=== PATIENT | female | born 1960 | race Hispanic/Latino ===

== ENCOUNTER 2021-07-07 11:03 | Day surgery (SDC) | payer BC ==
[2021-07-01 14:28] LABS: Urine Appearance CLEAR (Clear); Urine Bilirubin NEGATIVE (Negative); Urine Blood NEGATIVE (Negative); Urine Color YELLOW (Yellow); Urine Glucose NEGATIVE (Negative); Urine Protein NEGATIVE (Negative); Urine Specific Gravity 1.015 (1.005-1.030); Urine Urobilinogen 0.2 mg/dL (0.2-1.0)
--- NOTE | 2021-07-01 14:29 | RAD REPORT ---
EXAM DESCRIPTION: Rosamaria Andrews (2 Views)07/01/2021 2:22 pm CLINICAL HISTORY: Preop for bladder surgery COMPARISON: None FINDINGS: The lungs appear clear of acute infiltrate. The heart is borderline enlarged IMPRESSION: No acute abnormalities displayed
[2021-07-01 14:32] LABS: Urine Microscopic Reflex NO UMIC
[2021-07-01 14:44] LABS: BUN Blood Urea Nitrogen 16 mg/dL (7-18); Bicarbonate 29 mmol/L (21-32); Glucose Level 101 mg/dL (74-106); Potassium 3.9 mmol/L (3.5-5.1); Sodium Level 143 mmol/L (136-145)
[2021-07-01 15:24] LABS: Absolute Lymphocytes (CBC) 2.7 K/uL (0.7-4.9); Basophils % 0.4 % (0-1.3); Hematocrit 37.7 % (36.0-45.0); Lymphocytes % 28.3 % (15.3-44.8); MPV 8.5 fL (7.6-11.3)
[2021-07-01 15:26] LABS: Protime INR 0.97
[2021-07-07] MEDS ORDERED: NA CHLORIDE 0.9% 100 ML IV ONE (11:43)
[2021-07-07] MEDS ORDERED: CEFAZOLIN/SWI 1gm 1 GM/10 ML SYR ONE (11:44)
[2021-07-07] MEDS ORDERED: ROCURONIUM 50 MG/5 ML VIAL IV ONE (11:50)
[2021-07-07] MEDS ORDERED: VASOPRESSIN 20 UNIT/ML VIAL ONE (12:19)
[2021-07-07] MEDS ORDERED: propofoL 200 MG/20 ML VIAL IV ONE (12:42)
[2021-07-07] MEDS ORDERED: FENTANYL CITR 250 MCG/5 ML ONE (12:43)
[2021-07-07] MEDS ORDERED: dexAMETHasone 10 MG/ML VIAL ONE ×2 (12:43→17:33)
[2021-07-07] MEDS ORDERED: ONDANSETRON 4 MG/2 ML VIAL ONE ×2 (12:43→17:33)
[2021-07-07] MEDS ORDERED: MIDAZOLAM HCL 2 MG/2 ML INJ ONE (12:43)
[2021-07-07] MEDS ORDERED: LIDOCAINE 1% MPF 5 ML VIAL ONE (12:43)
[2021-07-07] MEDS: CEFAZOLIN/SWI 2gm 2 GM/20 ML SYR ONE ×2 (13:11→13:20)
[2021-07-07] MEDS: Ringers Lactate 1,000 ML IV ONE ×2 (14:05→14:09)
[2021-07-07] MEDS ORDERED: Ringers Lactate 1,000 ML IV ONE ×2 (15:13→17:29)
[2021-07-07] MEDS: LIDOCAINE 1% W/EPI 1:100,000 MDV 20 ML VIAL ONE ×2 (16:18→16:22)
[2021-07-07] MEDS ORDERED: NEOSTIGMINE 1 MG/ML -5 ML ONE (17:32)
[2021-07-07] MEDS ORDERED: GLYCOPYRROLATE 0.2 MG/ML SYR ONE (17:32)
[2021-07-07] MEDS ORDERED: KETOROLAC 30 MG/ML INJ ONE (18:06)
[2021-07-07] MEDS ORDERED: MORPHINE 2 MG/ML SYR IV PRN (18:06)
[2021-07-07] MEDS ORDERED: IBUPROFEN 600 MG TAB PO PRN (18:06)
[2021-07-07] MEDS ORDERED: ONDANSETRON 4 MG/2 ML VIAL IV PRN (18:06)
[2021-07-07] MEDS ORDERED: ACETAMINOPHEN 500 MG TAB PO PRN (18:06)
[2021-07-07] MEDS ORDERED: PROMETHAZINE INJ 25 MG/ML AMP IV PRN (18:06)
--- NOTE | 2021-07-07 18:14 | P.BOP ---
Preoperative diagnosis: stage 3 anterior wall uterine prolapse,rectocele,occult JOSE F Postoperative diagnosis: same, post enterocele, perineocele Primary procedure: A/P repair w post enterocele repair,Rt SSLFcervico-colpopexy Secondary procedure: psot wall, enterocele, perineocele repairs, TVT-O cysto Facility Practice Specialist: CLAUDIO VILLASEÑOR Estimated blood loss: 150 Specimen: none Findings: +1/+2/-2/5/mod/7-8/+1/+1/-4, significant Rt PVD,cysto patent afia ureters Anesthesia: General Complications: None Drain(s): Urinary catheter Implants: TVT-O Transferred to: Recovery Room Condition: Good
[2021-07-07 18:16] VITALS: O2SAT 95
[2021-07-07] MEDS: Ringers Lactate 1,000 ML IV SCH (20:32)
[2021-07-07 21:20] VITALS: BMI 34.5
[2021-07-08] MEDS: Ringers Lactate 1,000 ML IV SCH (04:04)
[2021-07-08 06:30] LABS: Absolute Lymphocytes (CBC) 1.5 K/uL (0.7-4.9); Basophils % 0.2 % (0-1.3); Hematocrit 30.4 % (36.0-45.0); Lymphocytes % 16.2 % (15.3-44.8); MPV 8.2 fL (7.6-11.3); RBC Red Blood Cell Count 3.32 M/uL (3.86-4.86)
[2021-07-08 08:10] VITALS: BP 139/73; TEMP 98.7
--- NOTE | 2021-07-08 13:15 | OP ---
Date of Procedure: 07/07/2021 Surgeon: Alivia Taylor MD Name Plate Stamper: Diane Elizabeth. Preoperative Diagnoses: Stage III anterior wall prolapse, uterine prolapse, rectocele, occult stress urinary incontinence. Postoperative Diagnoses: Stage III anterior wall prolapse, uterine prolapse, rectocele, occult stres s urinary incontinence and posterior enterocele and perineocele. Procedures Performed: 1.Anterior repair and posterior repair with posterior enterocele repair. 2.Right sacrospinous ligament fixation. 3.Cervical colpopexy. This is through the anterior wall. 4.Perineocele repair. 5.Mid urethral sling (TVT-O), cystoscopy. Ebl: 150. Urine Output: 150. Specimens: No specimens. Complication: No complications. Drains: Vo catheter, vaginal packing. Findings: The POP-Q is +1, +2, -2, 5 moderate, 7-8 cm for vaginal length, +1, +1, and -4. Significa nt right paravaginal defect was noticed during the procedure. Her left paravaginal support was completely intact and did not need a biologic graft for this reason. Description Of Procedure: On cystoscopy, ureters were patent bilaterally with no abnormalities noted in the bladder. After evaluating the patient's prolapse, an ultrasound done. No uterine pathology was noted. Urodynamics done, cystoscopy done to evaluate and preop counseling was done and she was c onsented for the procedure. As above also consented for bilateral sacrospinous fixation, colpopexy w ith a biologic graft augmentation as needed. In the preop area, she was consented. Questions and answers were done to their satisfaction. Her salome aponte was present with the patient for consultation as well as for support. She was placed in a supine fashion on the operating table. General anesthesia was given. 2 g of Anc ef were given preoperatively. SCDs were started. Arms were positioned appropriately. Abel stirrup s were used to place her in lithotomy position. Abdomen, vulva, vagina, and perineum were prepped an d draped in a sterile fashion. Vo was placed to drain the bladder and after draining the bladder was clamped and retracted superiorly. After re-evaluating the prolapse, the POP-Q is as above. Decision was made to not use a biologic gra ft augmentation because this was not needed. The paravaginal defect on the left side was minimal to none and on the right side, it was appropriate to do an anterior approach sacrospinous cervicopexy an d this would compensate for the defect on the side. Once this was decided, the vaginal length was ad equate for the fixation. The procedure was started. Two Allis' were placed at the urethrovaginal junction just proximal to it and then right above the ce rvix and injected with dilute vasopressin. A 15 blade used to make an incision. Dissection was perf ormed with the help of Metzenbaum scissors. Bladder was taken down all the way to the right paravagi nal space. This was entered and then after dissecting the bladder away, pararectal space was entered . Ischial spine was palpated and sacrospinous ligament was cleaned up by sweeping medial and posteri or to the ischial spine. Once this was fairly well cleaned up, then the dissection on the left side was also performed all the way to the paravaginal space and on palpation it was fairly notable of the intact support, so this was left alone after taking the bladder off the cervix for exposure so that the sacrospinous sutures could be placed comfortably. Two Prolene Capio sutures were taken and on a Capio SLIM device. Mid ligament sutures x2 were placed at least 2 cm away from the ischial spine on the sacrospinous ligament on the anterior surface of the ligament, 2 good bites were taken, retracted with clamps, then went on to reduce the anterior wall connective tissue from [id number]. Alis pl ication was done with 2-0 PDS sutures x2. Then 2 further sutures were placed to plicate the anterior wall in the midline. Then, the sutures were placed from the Prolene to the cervix and good bites of them were taken and the space was created in the paravaginal area so that the cervix could be comfor tably pulled back into the space. Once this was done, the sutures were tied down. The vaginal closu re was done with a 2-0 Vicryl suture in a continuous running fashion. Vaginal epithelium was trimmed appropriately without too much shortening of the ng or narrowing of the genital hiatus. Once the closure was completed, attention was directed to the sling. Mid urethral area was picked up on each side with 2 Allis clamps, injected with dilute vasopressin. The suction performed to the ipsilateral obturator space at a 45-degree angle to the horizontal and v ertical planes. Once the obturator membrane was perforated with the tip of the scissors and the scis sors were opened up to open it to create the tracts. Similar dissection was performed on both sides. Then the TVT-O kit was opened. Wing guide was placed. Reynaldo was passed in appropriate fashion hug ging the inferior pubic ramus exiting at its point marked 2 cm lateral to the groin fold, a cm above the horizontal line dropped at the level of the external meatus. A similar pass was taken on the lef t side as well. Plastic dilators were pulled out with a Alis clamps, mesh and the sheaths were held with the Alis's after the dilators were cut. Tensioning under the urethra was done with the help o f Metzenbaum scissors and the sheaths were pulled out. Mesh was trimmed, flushed with the skin. Aft er irrigating with antibiotic solution, the vaginal epithelium was closed with the help of 3-0 Vicryl in a continuous locked fashion. A Dermabond was placed on the skin incision. Vo was removed. Cystoscopy with a 30-degree lens normal saline was done. Excellent jets of urine from both ureteric orifices. No evidence of any trauma to the bladder or foreign body. Bladder was drained. Vo was replaced, clamped and retracted superiorly. Attention was directed to the posterior repair. Allis clamps were placed at both the hymenal and that were retracted for part, then the perineocele w as very discernible. The transverse of the perineum was significantly pulled apart and probably the perineal body was significantly thinned out and the external sphincter probably also involved, so annabelle n was to do the perineocele repair with a triangular incision on the skin and then do the posterior w all repair and posterior enterocele repair through the posterior wall incision. Vasopressin was injected in the posterior wall of the perineum. Zulema-shaped skin incision was mad e on the vaginal epithelium and sub-epithelium and this was dissected away from the connective tissue , the lower one third of the posterior wall. Then the tissues were from the vaginal epithe lium and underlying connective tissue with the rectovaginal septum was dissected away. Posterior ent erocele was also nicely dissected and . This was repaired with the help of a 3-0 Vicryl in a pursestring fashion. Once this was pulled together, then the posterior wall was plicated with the help of 2-[address] all the way down the tube. There appeared to be a tear from the left wall of the rectovaginal space, so this was reattached with a continuous running 2-0 PDS and then the perine al body was reconstructed well. This was held on the clamp. A triangular skin incision made on the perineal skin and the skin was excised, connective tissue was exposed and both the deep transverse pe rineum; or at least the scar of it was well visualized and out. Then 2-0 Vicryl sutures we re placed, interrupted x4 to bring the deep transverse perineum together reconstructing the perineal body and then I also placed 2 sutures on the distal levators to bring them together at the spot. The n, the PDS was attached to this so that the rectovaginal septum would be continuous and reattached to the newly reconstructed perineal body and the suture was tied off on the posterior wall. The vaginal epithelium was trimmed appropriately with the help of a Alis and closed with the help of 2-0 Vicryl in a continuous running locked fashion. Perineal body reconstruction on the skin was con ducted with the help of 3-0 Vicryl pulling all tissues together in a deep running subcutaneous fashio n, the subcuticular closure to close the skin and knot tied inside the hymenal ring. Rectal exam was performed. No evidence of any trauma or foreign body here or suture. Vaginal packin g was placed and the patient was recovered from anesthesia and taken to PACU in stable condition. Her EBL was 150, admitted for overnight observation and a voiding trial. All the findings were discu ssed with her daughter and her grandchild. ELIZABET/DENISE Voice ID: [id number] Report ID: [id number]
== END 2021-07-08 12:26 | disposition home or self-care (01) ==
LOC: OR 11:03 → 2ND-WC 18:07 → OR 07-08 12:26
PROVIDERS: ATTEND Obstetrics & Gynecology
PROC: 0JQC0ZZ Repair Pelvic Region Subcutaneous Tissue and Fascia, Open Approach (ICD-10-PCS; 2021-07-07)
PROC: 0HQ9XZZ Repair Perineum Skin, External Approach (ICD-10-PCS; 2021-07-07)
PROC: 0USG7ZZ Reposition Vagina, Via Natural or Artificial Opening (ICD-10-PCS; 2021-07-07)
PROC: 0TSD0ZZ Reposition Urethra, Open Approach (ICD-10-PCS; 2021-07-07)
PROC: 0JQC0ZZ Repair Pelvic Region Subcutaneous Tissue and Fascia, Open Approach (ICD-10-PCS; principal; 2021-07-07 11:30)
DX: N81.2 Incomplete uterovaginal prolapse (principal); N81.6 Rectocele; N39.3 Stress incontinence (female) (male); N32.81 Overactive bladder; N95.2 Postmenopausal atrophic vaginitis; Z20.822 Contact with and (suspected) exposure to COVID-19
CPT/HCPCS: 93005; 85025 ×2; 80048; 36415 ×2; 86900; 86850; 85610; 86901; 85730; 81003; 71046; 57260; 57282; 57288; U0002; J2704; J2250; J3010; J1100 ×2; J2710; J0690 ×2; J7120 ×5; J2405 ×2

== ENCOUNTER 2022-03-18 12:29 | Emergency (ER) | payer BC ==
--- NOTE | 2022-03-18 13:37 | RAD REPORT ---
EXAM DESCRIPTION: CT - Head Brain Wo Cont - 03/18/2022 1:28 pm CLINICAL HISTORY: Transient ischemic attack (TIA) Headache, drowsiness COMPARISON: No comparisons TECHNIQUE: All CT scans are performed using dose optimization technique as appropriate and may inclu de automated exposure control or mA/KV adjustment according to patient size. FINDINGS: No intracranial hemorrhage, hydrocephalus or extra-axial fluid collection.No areas of brai n edema or evidence of midline shift. The paranasal sinuses and mastoids are clear. The calvarium is intact. IMPRESSION: No acute intracranial abnormality.
[2022-03-18 13:43] LABS: Absolute Lymphocytes (CBC) 2.1 K/uL (0.7-4.9); Lymphocytes % 30.6 % (15.3-44.8); MPV 8.3 fL (7.6-11.3); RBC Red Blood Cell Count 4.21 M/uL (3.86-4.86)
[2022-03-18 14:27] LABS: BUN Blood Urea Nitrogen 14 mg/dL (7-18); Bicarbonate 27 mmol/L (21-32); Glucose Level 102 mg/dL (74-106); Magnesium 2.1 mg/dL (1.8-2.4); Potassium 3.8 mmol/L (3.5-5.1); Sodium Level 140 mmol/L (136-145)
[2022-03-18 14:29] LABS: Troponin High Sensitivity 3.6 pg/mL (<58.9)
--- NOTE | 2022-03-18 14:38 | EDPHYS ---
Physician Documentation [facility] Name: Noris Peters Age: 61 yrs Sex: Female : 1960 Arrival Date: 03/18/2022 Time: 12:31 Bed 26 Private MD: Micah Sanches ED Physician Carly Sexton HPI: 03/18 13:41 This 61 yrs old Female presents to ER via Ambulatory with complaints of jr8 Numbness Of Lips, Hand Pain. 13:41 The patient's problem is reported as paresthesias, lips. Onset: The symptoms/episode jr8 began/occurred acutely, today. Duration: The episode is continuous. Context: occurred at home. The symptoms are alleviated by nothing. The symptoms are aggravated by nothing. Associated signs and symptoms: Pertinent positives: sensation of heaviness to both hands. Severity of symptoms: At their worst the symptoms were mild in the emergency department the symptoms are unchanged. Patient's baseline: Neuro: alert and fully oriented, Motor: no deficits, Ambulation: walks without assistance, Speech: normal. The patient has not experienced similar symptoms in the past. The patient has not recently seen a physician. Historical: - Allergies: 12:42 No Known Allergies; ld1 - Home Meds: 12:42 None [Active]; ld1 - PMHx: 12:42 None; ld1 - PSHx: 12:42 None; ld1 - Immunization history:: Adult Immunizations up to date, Client reports having NOT received the Covid vaccine. - Social history:: Smoking status: Patient denies any tobacco usage or history of. Patient/guardian denies using alcohol. ROS: 14:06 Constitutional: Negative for fever, chills, and weight loss, Neck: Negative for injury, jr8 pain, and swelling, Cardiovascular: Negative for chest pain, palpitations, and edema, Respiratory: Negative for shortness of breath, cough, wheezing, and pleuritic chest pain, Abdomen/GI: Negative for abdominal pain, nausea, vomiting, diarrhea, and constipation, Back: Negative for injury and pain, MS/Extremity: Negative for injury and deformity, Skin: Negative for injury, rash, and discoloration. 14:06 Neuro: Positive for numbness, tingling. Exam: 14:06 Radiologist reports: No acute intracranial findings jr8 14:06 Head/Face: Normocephalic, atraumatic. Eyes: Pupils equal round and reactive to light, extra-ocular motions intact. Lids and lashes normal. Conjunctiva and sclera are non-icteric and not injected. Cornea within normal limits. Periorbital areas with no swelling, redness, or edema. ENT: Nares patent. No nasal discharge, no septal abnormalities noted. Tympanic membranes are normal and external auditory canals are clear. Oropharynx with no redness, swelling, or masses, exudates, or evidence of obstruction, uvula midline. Mucous membranes moist. Neck: Trachea midline, no thyromegaly or masses palpated, and no cervical lymphadenopathy. Supple, full range of motion without nuchal rigidity, or vertebral point tenderness. No Meningismus. Cardiovascular: Regular rate and rhythm with a normal S1 and S2. No gallops, murmurs, or rubs. Normal PMI, no JVD. No pulse deficits. Respiratory: Lungs have equal breath sounds bilaterally, clear to auscultation and percussion. No rales, rhonchi or wheezes noted. No increased work of breathing, no retractions or nasal flaring. Abdomen/GI: Soft, non-tender, with normal bowel sounds. No distension or tympany. No guarding or rebound. No evidence of tenderness throughout. Back: No spinal tenderness. No costovertebral tenderness. Full range of motion. Skin: Warm, dry with normal turgor. Normal color with no rashes, no lesions, and no evidence of cellulitis. MS/ Extremity: Pulses equal, no cyanosis. Neurovascular intact. Full, normal range of motion. Neuro: Awake and alert, GCS 15, oriented to person, place, time, and situation. Cranial nerves II-XII grossly intact. Motor strength 5/5 in all extremities. Sensory grossly intact. Cerebellar exam normal. Normal gait. Vital Signs: 12:39 BP 126 / 64; Pulse 70; Resp 18; Temp 98.3(TE); Pulse Ox 98% on R/A; Weight 83.91 kg; ld1 Height 5 ft. 1 in. (154.94 cm); Pain 0/10; 13:23 BP 121 / 65; Pulse 68; Resp 16; Temp 97.9; Pulse Ox 96% ; Weight 83.91 kg; Height 5 ft. zm 1 in. (154.94 cm); 14:11 BP 132 / 51; Pulse 63; Resp 17; Pulse Ox 98% on R/A; ab2 14:55 BP 130 / 68; Pulse 71; Resp 18; Pulse Ox 99% on R/A; ab2 13:23 Body Mass Index 34.96 (83.91 kg, 154.94 cm) zm NIH Stroke Scale Scores: 14:06 NIHSS Score: 0 8 MDM: 12:47 Patient medically screened. jr8 14:36 Data reviewed: vital signs, nurses notes, lab test result(s), EKG, radiologic studies, jr8 CT scan, plain films. Data interpreted: Pulse oximetry: on room air is 98 %. Interpretation: normal. Counseling: I had a detailed discussion with the patient and/or guardian regarding: the historical points, exam findings, and any diagnostic results supporting the discharge/admit diagnosis, lab results, radiology results, the need for outpatient follow up, a neurologist, to return to the emergency department if symptoms worsen or persist or if there are any questions or concerns that arise at home. ED course: Discussed with patient and family that her vital signs are stable, has no significant EKG, imaging changes, lab work otherwise unremarkable without significant findings. Recommended following up with neurology based on symptomology and will start her on low-dose aspirin just in case. If she were to have worsening of symptoms or new symptoms to come back for further evaluation. Family and patient good with this at this time will follow-up and/or come back.. 03/18 12:49 Order name: Basic Metabolic Panel; Complete Time: 14:35 03/18 12:49 Order name: CBC with Diff; Complete Time: 14:17 03/18 12:49 Order name: Magnesium; Complete Time: 14:35 03/18 12:49 Order name: Troponin HS; Complete Time: 14:35 03/18 13:08 Order name: CT Head Brain wo Cont; Complete Time: 13:40 03/18 12:49 Order name: EKG; Complete Time: 12:49 03/18 12:49 Order name: Cardiac monitoring; Complete Time: 13:33 03/18 12:49 Order name: EKG - Nurse/Tech; Complete Time: 13:33 03/18 12:49 Order name: IV Saline Lock; Complete Time: 13:33 jr8 03/18 12:49 Order name: Labs collected and sent; Complete Time: 13:33 jr8 03/18 12:49 Order name: O2 Per Protocol; Complete Time: 13:33 jr8 03/18 12:49 Order name: O2 Sat Monitoring; Complete Time: 13:33 8 Administered Medications: 14:51 Drug: Aspirin Chewable Tablet 81 mg Route: PO; ab2 14:54 Follow up: Response: No adverse reaction ab2 Disposition: 18:11 Co-signature as Attending Physician, Carly Sexton MD. ma2 Disposition Summary: 03/18/22 14:38 Discharge Ordered Location: Home jr8 Problem: new jr8 Symptoms: have improved jr8 Condition: Stable jr8 Diagnosis - Paresthesia of skin jr8 Followup: jr8 - With: Jung Carter MD - When: 2 - 3 days - Reason: Recheck today's complaints, Continuance of care, Re-evaluation by your physician Discharge Instructions: - Discharge Summary Sheet jr8 - Paresthesia jr8 - Ischemic Stroke jr8 - Transient Ischemic Attack jr8 Forms: - Medication Reconciliation Form jr8 - Thank You Letter jr8 - Antibiotic Education jr8 - Prescription Opioid Use jr8 Prescriptions: - aspirin 81 mg Oral tablet,chewable - chew 1 tablet by ORAL route once daily; 30 tablet; Refills: 0, Product jr8 Selection Permitted NIH Stroke Scale - NIH Stroke Score Date: 03/18/2022 Time: 14:06 Total Score = 0 1a. Level of Consciousness (LOC) - 0(Alert) 1b. Level of Consciousness (LOC) (Month \T\ Age) - 0(Both) 1c. LOC Commands (Open \T\ Closes Eyes/Smeller) - 0(Both) 2. Best Gaze (Lateral Gaze Paresis) - 0(Normal) 3. Visual Field Loss - 0(No visual loss) 4. Facial Palsy - 0(Normal) 5a. Left Arm: Motor (10-second hold) - 0(No drift) 5b. Right Arm: Motor (10-second hold) - 0(No drift) 6a. Left Leg: Motor (5-second hold - always test supine) - 0(No drift) 6b. Right Leg: Motor (5-second hold - always test supine) - 0(No drift) 7. Limb Ataxia (finger/nose \T\ heel/alanis - test with eyes open) - 0(Absent) 8. Sensory Loss (pinprick arms/legs/face) - 0(Normal) 9. Best Language: Aphasia (description/naming/reading) - 0(No aphasia) 10. Dysarthria (speech clarity - read or repeat words) - 0(Normal) 11. Extinction and Inattention (visual/tactile/auditory/spatial/personal) - 0(No abnormality) Initials: jr8 Signatures: Dispatcher [employer] EDMS Kamaljit Salinas PA PA jr8 Carly Sexton MD MD ma2 Lisa Ramsay RN RN ld1 Stefano Anthony Corrections: (The following items were deleted from the chart) 15:00 14:36 ED course: Discussed with patient and family that her vital signs are jr8 stable, has no significant EKG, imaging changes, lab work otherwise unremarkable without significant findings. Recommended following up with neurology based on symptomology and will start her on low-dose aspirin just in case. If she were to worsen or have worsening of symptoms or new symptoms to come back for further evaluation. Family and patient good with this at this time will follow-up and/or come back.. jr8
--- NOTE | 2022-03-18 14:38 | ER ---
Nurse's Notes [facility] Name: Noris Peters Age: 61 yrs Sex: Female : 1960 Arrival Date: 03/18/2022 Time: 12:31 Bed 26 Private MD: Micah Sanches Diagnosis: Paresthesia of skin Presentation: 03/18 12:39 Chief complaint: Patient states: when pt woke up at 10:30 - lips were tingly and felt ld1 like they were quivering but she couldn't see them moving in the mirror. Pt reporting "heavy" feeling in both hands. Coronavirus screen: At this time, the client does not indicate any symptoms associated with coronavirus-19. Ebola Screen: No symptoms or risks identified at this time. Initial Sepsis Screen: Does the patient meet any 2 criteria? No. Patient's initial sepsis screen is negative. Does the patient have a suspected source of infection? No. Patient's initial sepsis screen is negative. Risk Assessment: Do you want to hurt yourself or someone else? Patient reports no desire to harm self or others. Onset of symptoms was March 18, 2022. 12:39 Method Of Arrival: Ambulatory ld1 12:39 Acuity: JOSÉ 3 ld1 Triage Assessment: 12:42 General: Appears in no apparent distress. comfortable, Behavior is calm, cooperative, ld1 appropriate for age. Pain: Denies pain. EENT: No signs and/or symptoms were reported regarding the EENT system. Neuro: Level of Consciousness is awake, alert, obeys commands, Oriented to person, place, time, situation. Cardiovascular: Capillary refill < 3 seconds Patient's skin is warm and dry. Respiratory: Airway is patent Respiratory effort is even, unlabored, Respiratory pattern is regular, symmetrical. Derm: Reports tingling, in SARTHAK hands. Historical: - Allergies: 12:42 No Known Allergies; ld1 - Home Meds: 12:42 None [Active]; ld1 - PMHx: 12:42 None; ld1 - PSHx: 12:42 None; ld1 - Immunization history:: Adult Immunizations up to date, Client reports having NOT received the Covid vaccine. - Social history:: Smoking status: Patient denies any tobacco usage or history of. Patient/guardian denies using alcohol. Screenin:34 Abuse screen: Denies threats or abuse. Denies injuries from another. Nutritional ab2 screening: No deficits noted. Tuberculosis screening: No symptoms or risk factors identified. Fall Risk None identified. Assessment: 13:34 General: Appears in no apparent distress. comfortable, Behavior is calm, cooperative, ab2 appropriate for age. Pain: Denies pain. Neuro: Level of Consciousness is awake, alert, obeys commands, Oriented to person, place, time, situation, Appropriate for age Film Washer are equal bilaterally Moves all extremities. Gait is steady, Speech is normal. Cardiovascular: No deficits noted. Denies chest pain, shortness of breath, Heart tones S1 S2 present Patient's skin is warm and dry. Respiratory: No deficits noted. Airway is patent Respiratory effort is even, unlabored, Respiratory pattern is regular, symmetrical, Breath sounds are clear bilaterally. : No deficits noted. No signs and/or symptoms were reported regarding the genitourinary system. Derm: Skin is fragile, is thin, Skin is normal. 13:35 GI: Reports. Musculoskeletal: Reports numbness in face. ab2 Vital Signs: 12:39 BP 126 / 64; Pulse 70; Resp 18; Temp 98.3(TE); Pulse Ox 98% on R/A; Weight 83.91 kg; ld1 Height 5 ft. 1 in. (154.94 cm); Pain 0/10; 13:23 BP 121 / 65; Pulse 68; Resp 16; Temp 97.9; Pulse Ox 96% ; Weight 83.91 kg; Height 5 ft. zm 1 in. (154.94 cm); 14:11 BP 132 / 51; Pulse 63; Resp 17; Pulse Ox 98% on R/A; ab2 14:55 BP 130 / 68; Pulse 71; Resp 18; Pulse Ox 99% on R/A; ab2 13:23 Body Mass Index 34.96 (83.91 kg, 154.94 cm) zm NIH Stroke Scale Scores: 14:06 NIHSS Score: 0 [facility] ED Course: 12:31 Patient arrived in ED. mr 12:31 Micah Sanches MD is Private Physician. mr 12:42 Triage completed. ld1 12:42 Arm band placed on right wrist. ld1 12:47 Kamaljit Salinas PA is PHCP. jr8 12:47 Carly Sexton MD is Attending Physician. jr8 13:03 Stefano Anthony is Primary Nurse. ab2 13:30 CT Head Brain wo Cont In Process Unspecified. EDMS 13:30 Inserted saline lock: 20 gauge in right antecubital area, using aseptic technique. ab2 Blood collected. 13:33 Basic Metabolic Panel Sent. ab2 13:33 CBC with Diff Sent. ab2 13:33 Magnesium Sent. ab2 13:33 Troponin HS Sent. ab2 13:35 Patient has correct armband on for positive identification. Bed in low position. Call ab2 light in reach. Side rails up X2. 13:35 No provider procedures requiring assistance completed. ab2 14:37 Jung Carter MD is Referral Physician. jr8 14:55 IV discontinued, intact, bleeding controlled, No redness/swelling at site. Pressure ab2 dressing applied. Administered Medications: 14:51 Drug: Aspirin Chewable Tablet 81 mg Route: PO; ab2 14:54 Follow up: Response: No adverse reaction ab2 Outcome: 14:38 Discharge ordered by . jr8 14:55 Discharged to home ambulatory. ab2 14:55 Condition: good 14:55 Discharge instructions given to patient, family, Instructed on discharge instructions, follow up and referral plans. medication usage, Demonstrated understanding of instructions, follow-up care, medications, Prescriptions given X 1. 14:55 Patient left the ED. ab2 NIH Stroke Scale - NIH Stroke Score Date: 03/18/2022 Time: 14:06 Total Score = 0 1a. Level of Consciousness (LOC) - 0(Alert) 1b. Level of Consciousness (LOC) (Month \\T\\ Age) - 0(Both) 1c. LOC Commands (Open \\T\\ Closes Eyes/Tooling Manager) - 0(Both) 2. Best Gaze (Lateral Gaze Paresis) - 0(Normal) 3. Visual Field Loss - 0(No visual loss) 4. Facial Palsy - 0(Normal) 5a. Left Arm: Motor (10-second hold) - 0(No drift) 5b. Right Arm: Motor (10-second hold) - 0(No drift) 6a. Left Leg: Motor (5-second hold - always test supine) - 0(No drift) 6b. Right Leg: Motor (5-second hold - always test supine) - 0(No drift) 7. Limb Ataxia (finger/nose \\T\\ heel/alanis - test with eyes open) - 0(Absent) 8. Sensory Loss (pinprick arms/legs/face) - 0(Normal) 9. Best Language: Aphasia (description/naming/reading) - 0(No aphasia) 10. Dysarthria (speech clarity - read or repeat words) - 0(Normal) 11. Extinction and Inattention (visual/tactile/auditory/spatial/personal) - 0(No abnormality) Initials: jr8 Signatures: Dispatcher [employer] [facility] Kandace Blanchard mr Rita, Kamaljit, PA PA jr8 Lisa Ramsay, RN RN ld1 Stefano Anthony ab2 Joelle Mccormick Corrections: (The following items were deleted from the chart) 13:35 13:34 GI: Reports rectal bleeding, bloody stool, nausea, ab2 ab2
[2022-03-18] MEDS ORDERED: ASPIRIN 81 MG CHEWABLE TABLET ONE (14:53)
[2022-03-18 15:29] VITALS: TEMP 97.9
[2022-03-18 15:31] VITALS: BP 130/68; O2SAT 99
--- NOTE | 2022-03-19 07:46 | EKG ---
Test Date: 2022-03-18 Test Time: 13:15:53 Fitness Professional: PATRIZIA MEASUREMENT RESULTS: Intervals: Rate: 61 AL: 160 QRSD: 84 QT: 416 QTc: 418 [place]: P: 50 AL: 160 QRS: -11 T: 40 INTERPRETIVE STATEMENTS: Normal sinus rhythm Normal ECG Compared to ECG 07/01/2021 12:59:13 No significant changes Electronically Signed On 03-19-22 07:42:28 CDT by Steven Obrien
== END 2022-03-18 14:55 | disposition home or self-care (01) ==
LOC: ER 12:29
DX: R20.2 Paresthesia of skin (principal)
CPT/HCPCS: 36415; 70450; 80048; 83735; 84484; 85025; 93005; 99284

== ENCOUNTER 2022-11-06 14:21 | Emergency (ER) | payer BC ==
[2022-11-06 15:36] LABS: Absolute Lymphocytes (CBC) 3.3 K/uL (0.7-4.9); Hematocrit 41.5 % (36.0-45.0); Lymphocytes % 34.5 % (15.3-44.8); MCV 93.1 fL (80-100); MPV 8.3 fL (7.6-11.3); RBC Red Blood Cell Count 4.46 M/uL (3.86-4.86)
[2022-11-06 16:46] LABS: Albumin 3.9 g/dL (3.4-5.0); Bilirubin Total 0.4 mg/dL (0.2-1.0); Protein, Total 8.4 g/dL (6.4-8.2)
--- NOTE | 2022-11-06 17:06 | RAD REPORT ---
EXAM DESCRIPTION: CT - Abdomen Pelvis W Contrast - 11/06/2022 4:46 pm CLINICAL HISTORY: Abdominal pain COMPARISON: none. TECHNIQUE: Computed axial tomography of the abdomen pelvis was obtained. 100 cc Isovue-300 was admin istered intravenously. Oral contrast was not requested which limits evaluation of bowel and appendix All CT scans are performed using dose optimization technique as appropriate and may include automated exposure control or mA/KV adjustment according to patient size. FINDINGS: Fatty liver Spleen, pancreas, adrenal and kidneys appear unremarkable. There is no evidence of diverticulitis. Normal appendix. No adnexal mass Mild interstitial opacities right lower lobe. Several right tiny subpleural nodules IMPRESSION: Mild interstitial opacities right lower lobe having more chronic than acute appearance. Several tiny right subpleural nodules likely benign. A followup CT chest in 1 year recommended for re -evaluation No acute abnormality involving the abdomen/pelvis
[2022-11-06 19:20] LABS: Urine Blood 1+ (Negative); Urine Glucose Negative (Negative); Urine Protein Negative (Negative); Urine pH 6.5 (5.0-7.0)
--- NOTE | 2022-11-06 19:24 | ER ---
Nurse's Notes [facility] Name: Noris Peters Age: 62 yrs Sex: Female : 1960 Arrival Date: 11/06/2022 Time: 14:25 Bed 6 Private MD: Diagnosis: Lower abdominal pain, unspecified Presentation: 11/06 15:06 Chief complaint: Patient states: RLQ pain x 5 days, no N/V/D, denies urinary symptoms ph or fever. Coronavirus screen: Vaccine status: Patient reports being unvaccinated. Ebola Screen: No symptoms or risks identified at this time. Initial Sepsis Screen: Does the patient meet any 2 criteria? No. Patient's initial sepsis screen is negative. Does the patient have a suspected source of infection? No. Patient's initial sepsis screen is negative. Risk Assessment: Do you want to hurt yourself or someone else? Patient reports no desire to harm self or others. Onset of symptoms was November 06, 2022. 15:06 Method Of Arrival: Ambulatory ph 15:06 Acuity: JOSÉ 3 ph Triage Assessment: 15:08 General: Appears in no apparent distress. comfortable, well groomed, Behavior is calm, ph cooperative, appropriate for age. Pain: Complains of pain in right lower quadrant. GI: Reports lower abdominal pain, Patient currently denies diarrhea, nausea, vomiting. Historical: - Allergies: 15:07 No Known Allergies; ph - PMHx: 15:07 None; ph - Immunization history:: Adult Immunizations unknown. - Social history:: Smoking status: Patient denies any tobacco usage or history of. Screenin:45 [facility] ED Fall Risk Assessment (Adult) History of falling in the last 3 months, hb including since admission No falls in past 3 months (0 pts) Confusion or Disorientation No (0 pts) Intoxicated or Sedated No (0 pts) Impaired Gait No (0 pts) Mobility Assist Device Used No (0 pt) Altered Elimination No (0 pt) Score/Fall Risk Level 0 - 2 = Low Risk. Abuse screen: Denies threats or abuse. Denies injuries from another. Nutritional screening: No deficits noted. Tuberculosis screening: No symptoms or risk factors identified. 19:35 Fall Risk No fall in past 12 months (0 pts). No secondary diagnosis (0 pts). IV access ll3 (20 points). Ambulatory Aid- None/Bed Rest/Nurse Assist (0 pts). Gait- Normal/Bed Rest/Wheelchair (0 pts) Mental Status- Oriented to own ability (0 pts). Total Guevara Fall Scale indicates No Risk (0-24 pts). 19:35 Humpty Dumpty Scale Fall Assessment Tool (age< 18yrs) Age 13 years and above (1 pt). ll3 Assessment: 15:45 General: Appears in no apparent distress. comfortable, Behavior is calm, cooperative, hb appropriate for age. Pain: Complains of pain in right lower quadrant Pain radiates to right low back Pain currently is 7 out of 10 on a pain scale. Quality of pain is described as throbbing, Pain began a week ago. Is continuous, Alleviated by nothing. Aggravated by increased activity, repositioning, Also complains of no other associated symptoms. Neuro: Alexander Agitation-Sedation Scale (RASS): 0 - Alert and Calm Level of Consciousness is awake, alert, obeys commands, Oriented to person, place, time, situation, Appropriate for age. Cardiovascular: Heart tones S1 S2 present Capillary refill < 3 seconds. Respiratory: Airway is patent Trachea midline Respiratory effort is even, unlabored, Respiratory pattern is regular, symmetrical. GI: No signs and/or symptoms were reported involving the gastrointestinal system. Abdomen is flat, non-distended, Bowel sounds present X 4 quads. Abd is soft X 4 quads Abdomen is tender to palpation in right lower quadrant Reports lower abdominal pain, Patient currently denies diarrhea, nausea, vomiting. : No signs and/or symptoms were reported regarding the genitourinary system. EENT: No signs and/or symptoms were reported regarding the EENT system. Derm: No signs and/or symptoms reported regarding the dermatologic system. Skin is intact, Skin is pink, warm \T\ dry. Musculoskeletal: No signs and/or symptoms reported regarding the musculoskeletal system. Circulation, motion, and sensation intact. Capillary refill < 3 seconds, Range of motion: intact in all extremities. 16:45 Reassessment: Patient appears in no apparent distress at this time. No changes from kc6 previously documented assessment. Patient and/or family updated on plan of care and expected duration. Pain level reassessed. Patient is alert, oriented x 3, equal unlabored respirations, skin warm/dry/pink. 17:45 Reassessment: Patient appears in no apparent distress at this time. No changes from kc6 previously documented assessment. Patient and/or family updated on plan of care and expected duration. Pain level reassessed. Patient is alert, oriented x 3, equal unlabored respirations, skin warm/dry/pink. Vital Signs: 15:06 BP 124 / 67; Pulse 64; Resp 18; Temp 97.1; Pulse Ox 98% on R/A; Weight 83.91 kg; ph 15:47 BP 137 / 69; Pulse 66; Resp 18 S; Pulse Ox 99% on R/A; Pain 7/10; hb 17:54 BP 117 / 53; Pulse 68; Resp 18 S; Pulse Ox 98% on R/A; kc6 ED Course: 14:25 Patient arrived in ED. mr 14:26 Adri[facility]C [facility] kb 14:26 Rock Francisco MD is Attending Physician. kb 15:07 Triage completed. ph 15:08 Arm band placed on Patient placed in waiting room, Patient notified of wait time. ph 15:10 Nery Zapata, RN is Primary Nurse. hb 15:48 Patient has correct armband on for positive identification. Bed in low position. Call hb light in reach. Side rails up X2. Adult w/ patient. 16:48 CT Abd/Pelvis - IV Contrast Only In Process Unspecified. EDMS 19:22 Urine Microscopic Only Sent. ph 19:35 No provider procedures requiring assistance completed. IV discontinued, intact, ll3 bleeding controlled, No redness/swelling at site. Pressure dressing applied. Administered Medications: No medications were administered Medication: 19:35 VIS not applicable for this client. ll3 Outcome: 19:23 Discharge ordered by . kb 19:35 Discharged to home ambulatory, with family. ll3 19:35 Condition: stable 19:35 Discharge instructions given to patient, family, Instructed on discharge instructions, follow up and referral plans. Demonstrated understanding of instructions, follow-up care. 19:36 Patient left the ED. ll3 Signatures: Dispatcher [employer] EDMS Adriana Castillo FNP-C FNP-Raysa Kandace BlanchardChery RN RN ph Nery Zapata, JEANNIE DENNIS Nasim Matta RN RN ll3 Grazyna Kerns RN RN kc6
--- NOTE | 2022-11-06 19:24 | EDPHYS ---
Physician Documentation [facility] Name: Noris Peters Age: 62 yrs Sex: Female : 1960 Arrival Date: 11/06/2022 Time: 14:25 Bed 6 Private MD: ED Physician Rock Francisco HPI: 11/06 15:10 This 62 yrs old Female presents to ER via Ambulatory with complaints of kb Abdominal Pain. 15:10 The patient presents with abdominal pain right lower quadrant. Onset: The kb symptoms/episode began/occurred 5 day(s) ago. The symptoms do not radiate. Associated signs and symptoms: none. The symptoms are described as sharp. Modifying factors: The symptoms are alleviated by nothing, the symptoms are aggravated by nothing. Severity of pain: At its worst the pain was moderate in the emergency department the pain is unchanged. The patient has not experienced similar symptoms in the past. The patient has not recently seen a physician. Historical: - Allergies: 15:07 No Known Allergies; ph - PMHx: 15:07 None; ph - Immunization history:: Adult Immunizations unknown. - Social history:: Smoking status: Patient denies any tobacco usage or history of. ROS: 15:10 Constitutional: Negative for fever, chills, and weight loss. kb 15:10 Abdomen/GI: Positive for abdominal pain, Negative for nausea, vomiting, and diarrhea. 15:10 All other systems are negative. Exam: 15:10 Constitutional: This is a well developed, well nourished patient who is awake, alert, kb and in no acute distress. Head/Face: Normocephalic, atraumatic. ENT: Moist Mucous membranes Cardiovascular: Regular rate and rhythm with a normal S1 and S2. No gallops, murmurs, or rubs. No pulse deficits. Respiratory: Respirations even and unlabored. No increased work of breathing. Talking in full sentences Skin: Warm, dry with normal turgor. Normal color. MS/ Extremity: Pulses equal, no cyanosis. Neurovascular intact. Full, normal range of motion. Neuro: Awake and alert, GCS 15, oriented to person, place, time, and situation. Moves all extremities. Normal gait. Psych: Awake, alert, with orientation to person, place and time. Behavior, mood, and affect are within normal limits. 15:10 Abdomen/GI: Inspection: abdomen appears normal, Bowel sounds: normal, in all quadrants, Palpation: soft, in all quadrants, mild abdominal tenderness, in the right lower quadrant. Vital Signs: 15:06 BP 124 / 67; Pulse 64; Resp 18; Temp 97.1; Pulse Ox 98% on R/A; Weight 83.91 kg; ph 15:47 BP 137 / 69; Pulse 66; Resp 18 S; Pulse Ox 99% on R/A; Pain 7/10; hb 17:54 BP 117 / 53; Pulse 68; Resp 18 S; Pulse Ox 98% on R/A; kc6 MDM: 14:40 Patient medically screened. kb 15:10 Data reviewed: vital signs, nurses notes. Data interpreted: Pulse oximetry: on room air kb is 98 %. Interpretation: normal. 19:23 Counseling: I had a detailed discussion with the patient and/or guardian regarding: the kb historical points, exam findings, and any diagnostic results supporting the discharge/admit diagnosis, lab results, radiology results, the need for outpatient follow up, a family practitioner, to return to the emergency department if symptoms worsen or persist or if there are any questions or concerns that arise at home. 19:25 ED course: Discussed all results and gave pt a printed copy. Discussed nodules that kb need reevaluation in one year. Verbal understanding received from family member. 11/06 14:44 Order name: CBC with Diff; Complete Time: 15:44 kb 11/06 14:44 Order name: CMP; Complete Time: 16:55 kb 11/06 14:44 Order name: Lipase; Complete Time: 16:55 kb 11/06 14:44 Order name: CT Abd/Pelvis - IV Contrast Only; Complete Time: 17:07 kb 11/06 17:07 Order name: Urine Microscopic Only; Complete Time: 19:35 kb 11/06 19:20 Order name: Urine Dipstick-Ancillary; Complete Time: 19:20 EDMS 11/06 14:44 Order name: IV Saline Lock; Complete Time: 16:16 kb 11/06 14:44 Order name: Labs collected and sent; Complete Time: 15:45 kb 11/06 15:41 Order name: Labs - recollect needed: recollect labs; Complete Time: 16:16 eb 11/06 17:07 Order name: Urine Dipstick-Ancillary (obtain specimen); Complete Time: 19:22 kb 11/06 18:34 Order name: Urine Dipstick-Ancillary (obtain specimen); Complete Time: 19:21 kb Administered Medications: No medications were administered Disposition Summary: 11/06/22 19:23 Discharge Ordered Location: Home kb Condition: Stable kb Diagnosis - Lower abdominal pain, unspecified kb Followup: kb - With: Emergency Department - When: As needed - Reason: Worsening of condition Followup: kb - With: Private Physician - When: 2 - 3 days - Reason: Recheck today's complaints, Continuance of care, Re-evaluation by your physician Discharge Instructions: - Discharge Summary Sheet kb - Abdominal Pain, Adult, [id number] kb Forms: - Medication Reconciliation Form kb - Thank You Letter kb - Antibiotic Education kb - Prescription Opioid Use kb Addendum: 11/07/2022 19:39 Co-signature as Attending Physician, Rock Francisco MD. r n Signatures: Dispatcher [employer] EDMS Adriana Castillo, TIP BANDER-C TIP BANDER-Ckb Rock Francisco MD MD rn Hall, Patricia, RN RN Jaky Chavez
[2022-11-06 19:33] LABS: Urine Bacteria None Seen /HPF (<20); Urine RBC <5 /HPF (None Seen)
[2022-11-06 19:52] VITALS: TEMP 97.1
[2022-11-06 19:55] VITALS: BP 117/53; O2SAT 98
== END 2022-11-06 19:36 | disposition home or self-care (01) ==
LOC: ER 14:21
DX: R10.31 Right lower quadrant pain (principal); R11.2 Nausea with vomiting, unspecified
CPT/HCPCS: 85025; 36415; 82565; 83690; 80053; 74177; 99283; Q9967; 81003; 81015

== ENCOUNTER 2023-10-23 05:32 | Emergency (ER) | payer BC ==
--- OUTSIDE RECORDS SUMMARY | 2023-10-23 05:35 | XMS REPORT | Continuity of Care Document ---
:1960 Author Organization [facility] t Address [address] [facility] [address] [place] [id number] Care Team Providers Name Role Phone [email or web address] Attending Clinician Unavailable [email or web address] Admitting Clinician Unavailable Problems This patient has no known problems. Allergies, Adverse Reactions, Alerts This patient has no known allergies or adverse reactions. Medications This patient has no known medications. Procedures This patient has no known procedures. Encounters Start End Encounter Admission Attending Care Care Encounter Source Date/Time Date/Time Type Type Clinicians Facility Department ID 2023-09-18 2023-09-18 Outpatient [email or web address] PRIV PRIV [id number] [facility] 00:00:00 00:00:00 diyala_S [id number] Medic al Results This patient has no known results.
[2023-10-23] MEDS ORDERED: KETOROLAC 30 MG/ML INJ ONE (06:23)
[2023-10-23] MEDS ORDERED: HYDROCODONE/APAP 5/325 MG TAB ONE ×2 (06:23→08:27)
--- NOTE | 2023-10-23 07:48 | EDPHYS ---
Physician Documentation [facility] Name: Noris Peters Age: 63 yrs Sex: Female : 1960 Arrival Date: 10/23/2023 Time: 05:32 Bed 11 Private MD: Horace Petersen HPI: 10/23 05:47 This 63 yrs old Female presents to ER via Unassigned with complaints of Knee ms3 Pain. 05:47 63-year-old female with past medical history of arthritis presents for left knee pain ms3 that has been ongoing for 1 month. Patient states pain is a 9/10. Patient denies any alleviating or inciting factors. Patient states she took methocarbamol at 4:30 AM without relief.. Historical: - Allergies: 05:56 No Known Allergies; as6 - PMHx: 05:56 Arthritis; as6 - PSHx: 05:56 Total abdominal hysterectomy; as6 - Immunization history:: Adult Immunizations not up to date. - Social history:: Smoking status: Patient denies any tobacco usage or history of. ROS: 05:47 Constitutional: Negative for fever, and chills. Cardiovascular: Negative for chest ms3 pain, and palpitations. Respiratory: Negative for shortness of breath, cough, wheezing, and pleuritic chest pain, Abdomen/GI: Negative for abdominal pain, nausea, vomiting, diarrhea, and constipation, 05:47 MS/extremity: Positive for pain, of the left knee, 05:47 All other systems are negative, Exam: 05:47 Constitutional: This is a well developed, well nourished patient who is awake, alert, ms3 and in no acute distress. Head/Face: Normocephalic, atraumatic. Chest/axilla: Normal chest wall appearance and motion. Nontender with no deformity. Cardiovascular: Regular rate and rhythm with a normal S1 and S2. No gallops, murmurs, or rubs. Normal PMI, no JVD. No pulse deficits. Respiratory: Lungs have equal breath sounds bilaterally, clear to auscultation and percussion. No rales, rhonchi or wheezes noted. No increased work of breathing, no retractions or nasal flaring. Abdomen/GI: Soft, non-tender, with normal bowel sounds. No distension or tympany. No guarding or rebound. No evidence of tenderness throughout. Skin: Warm, dry with normal turgor. Normal color with no rashes, no lesions, and no evidence of cellulitis. 05:47 Musculoskeletal/extremity: Extremities: noted in the left knee: pain, There is no evidence of deformity, ecchymosis, erythema, swelling, tenderness, Vital Signs: 05:52 BP 150 / 86; Pulse 79; Resp 18 S; Temp 98.2(TE); Pulse Ox 100% on R/A; Weight 81.65 kg as6 (R); Height 5 ft. 0 in. (R); Pain 9/10; 05:52 Body Mass Index 35.15 (81.65 kg, 152.4 cm) as6 05:52 Pain Scale: Adult as6 MDM: 05:47 Differential diagnosis: tendonitis, Arthritis. ms3 05:53 Patient medically screened. ms3 07:23 Transition of care: After a detail discussion of the patient's case, care is ms3 transferred to Horace Vásquez MD. 07:34 ED course: NEUROLOGY NURSE database reviewed. ms3 07:42 Data reviewed: vital signs, nurses notes, radiologic studies, plain films. layton Consideration of Admission/Observation Escalation of care including admission/observation considered. I considered the following discharge prescriptions or medication management in the emergency department Medications were administered in the Emergency Department. See MAR. Independent interpretation of the following test(s) in the Emergency Department X-Ray: My interpretation is left knee interp. Historians other than the Patient: Daughter/Son: daughter , well informed. Care significantly affected by the following chronic conditions: Obesity, oa. Counseling: I had a detailed discussion with the patient and/or guardian regarding the historical points, exam findings, and any diagnostic results supporting the discharge/admit diagnosis, radiology results. 10/23 06:07 Order name: Knee Left 3 View EDNH 10/23 07:15 Order name: Knee Left 3 View EDNH 10/23 07:42 Order name: Nikhil wrap-joint; Complete Time: 08:28 layton Administered Medications: 06:13 Drug: HYDROcodone-acetaminophen PO 5 mg-325 mg 1 tabs PO once Route: PO; as6 06:13 Drug: Ketorolac IM 15 mg IM once Route: IM; Site: left ventrogluteal; as6 08:28 Drug: Dexamethasone IM 10 mg IM once Route: IM; Site: right ventrogluteal; iw 08:28 Drug: HYDROcodone-acetaminophen PO 5 mg-325 mg 2 tabs PO once Route: PO; iw Disposition Summary: 10/23/23 07:48 Discharge Ordered Notes: Location: Home lay[place] Condition: Stable lay[place] Problem: new lay[place] Symptoms: have improved lay[place] Diagnosis - Pain in left knee lay[place] - Other specified arthritis, left knee layton Followup: ms3 - With: Parish Isabel MD - When: 2 - 3 days - Reason: Recheck today's complaints Discharge Instructions: - Joint Pain lay[place] - Osteoarthritis [facility] - How to Use Cold Therapy, [id number] [facility] - Discharge Summary Sheet ms3 - Acute Knee Pain, Adult ms3 Forms: - Medication Reconciliation Form [facility] - Thank You Letter lay[place] - Antibiotic Education [facility] - Prescription Opioid Use [facility] - Patient Portal Instructions [facility] - Leadership Thank You Letter lay[place] - Work release form Prescriptions: - acetaminophen-codeine 300-30 mg Oral tablet - take 2 tablet ORAL route every 6 hours as needed for pain; 20 tablet; Refills: lay[place] 0, Product Selection Permitted - diclofenac sodium 50 mg Oral tablet, delayed release (enteric coated) - take 1 tablet ORAL route every 12 hours; 20 tablet; Refills: 0, Product lay[place] Selection Permitted - Medrol ([place]) 4 mg Oral Tablets, Dose Pack - take 1 tablet ORAL route as directed - follow package instructions; 1 packet; [facility] Refills: 0, Product Selection Permitted Signatures: Dispatcher [employer] EDMS Horace Vásquez MD MD cha Williams, Irene RN JEANNIE Kris Guido DO DO ms3 Mina Jimenez RN RN as6 Corrections: (The following items were deleted from the chart) 06:08 05:47 Knee Left 3 View+RAD.RAD.BRZ ordered. EDMS EDMS
--- NOTE | 2023-10-23 07:48 | ER ---
Nurse's Notes [facility] Name: Noris Peters Age: 63 yrs Sex: Female : 1960 Arrival Date: 10/23/2023 Time: 05:32 Bed 11 Private MD: Diagnosis: Pain in left knee;Other specified arthritis, left knee Presentation: 10/23 05:56 Chief complaint: Patient states: left knee pain x1 month. Coronavirus screen: At this as6 time, the client does not indicate any symptoms associated with coronavirus-19. Ebola Screen: No symptoms or risks identified at this time. Initial Sepsis Screen: Does the patient meet any 2 criteria? No. Patient's initial sepsis screen is negative. Does the patient have a suspected source of infection? No. Patient's initial sepsis screen is negative. Risk Assessment: Do you want to hurt yourself or someone else? Patient reports no desire to harm self or others. Onset of symptoms was September 2023. 05:56 Acuity: JOSÉ 4 as6 05:56 Method Of Arrival: Wheelchair as6 Triage Assessment: 05:52 General: Appears uncomfortable, Behavior is calm, cooperative. Pain: Complains of pain as6 in left knee. EENT: No deficits noted. No signs and/or symptoms were reported regarding the EENT system. Neuro: Level of Consciousness is awake, alert, obeys commands, Oriented to person, place, time, situation. Cardiovascular: Capillary refill < 3 seconds Patient's skin is warm and dry. Respiratory: Respiratory effort is even, unlabored, Respiratory pattern is regular, symmetrical. GI: No deficits noted. No signs and/or symptoms were reported involving the gastrointestinal system. : No deficits noted. No signs and/or symptoms were reported regarding the genitourinary system. Derm: Skin is intact, is healthy with good turgor. Musculoskeletal: Range of motion: limited in left knee Reports pain in left knee. Historical: - Allergies: 05:56 No Known Allergies; as6 - PMHx: 05:56 Arthritis; as6 - PSHx: 05:56 Total abdominal hysterectomy; as6 - Immunization history:: Adult Immunizations not up to date. - Social history:: Smoking status: Patient denies any tobacco usage or history of. Screenin:58 [facility] ED Fall Risk Assessment (Adult) Score/Fall Risk Level 0 - 2 = Low Risk. Abuse as6 screen: Denies threats or abuse. Denies injuries from another. Nutritional screening: No deficits noted. Tuberculosis screening: No symptoms or risk factors identified. Vital Signs: 05:52 BP 150 / 86; Pulse 79; Resp 18 S; Temp 98.2(TE); Pulse Ox 100% on R/A; Weight 81.65 kg as6 (R); Height 5 ft. 0 in. (R); Pain 9/10; 05:52 Body Mass Index 35.15 (81.65 kg, 152.4 cm) as6 05:52 Pain Scale: Adult as6 ED Course: 05:35 Patient arrived in ED. kj1 05:38 Kris Guido DO is Attending Physician. ms3 05:52 Mina Jimenez, JEANNIE is Primary Nurse. as6 05:52 Arm band placed on. as6 05:58 Triage completed. as6 05:58 Bed in low position. Call light in reach. as6 06:36 Knee Left 3 View In Process Unspecified. EDMS 07:35 Attending Physician role handed off by Kris Guido DO ms3 07:35 Horace Vásquez MD is Attending Physician. ms3 07:48 Parish Isabel MD is Referral Physician. layton 08:47 Knee Left 3 View In Process Unspecified. EDMS Administered Medications: 06:13 Drug: HYDROcodone-acetaminophen PO 5 mg-325 mg 1 tabs PO once Route: PO; as6 06:13 Drug: Ketorolac IM 15 mg IM once Route: IM; Site: left ventrogluteal; as6 08:28 Drug: Dexamethasone IM 10 mg IM once Route: IM; Site: right ventrogluteal; iw 08:28 Drug: HYDROcodone-acetaminophen PO 5 mg-325 mg 2 tabs PO once Route: PO; iw Medication: 05:59 VIS not applicable for this client. as6 Outcome: 07:48 Discharge ordered by . layton 08:38 Patient left the ED. iw Signatures: Dispatcher [employer] EDMS Horace Vásquez MD MD cha Williams, Irene, RN RN Jennifer Castillo [email or web address] Kris Guido DO DO ms3 Mina Jimenez RN RN as6
[2023-10-23] MEDS ORDERED: dexAMETHasone 10 MG/ML VIAL ONE (08:27)
[2023-10-23 09:34] VITALS: BP 150/86; TEMP 98.2; O2SAT 100
--- NOTE | 2023-10-23 10:35 | RAD REPORT ---
EXAM DESCRIPTION: RAD - Knee Left 3 View - 10/23/2023 8:45 am CLINICAL HISTORY: Left knee pain FINDINGS: No fracture or dislocation is seen. No bone or joint abnormality seen. Patient's symptoms persist follow-up x-ray in 1 month would be rec ommended for re-evaluation
== END 2023-10-23 08:38 | disposition home or self-care (01) ==
LOC: ER 05:32
DX: M13.862 Other specified arthritis, left knee (principal)
CPT/HCPCS: 73562 ×2; 96372; 99284; J1100